=== PATIENT | male | born 1980 | race Caucasian/White ===

== ENCOUNTER 2017-04-14 08:21 | Emergency (ER) | payer OTHER ==
[2017-04-14 08:44] VITALS: BP 136/78
--- NOTE | 2017-04-14 09:06 | UC ---
Ear Complaint HPI - HPI Summary HPI Summary: Patient presents with left sided ear pain, redness and swelling x 3 days. He was seen by Dr. Barth's office for "dry skin in the ear" and cerumen buildup with pain on Saturday. He was prescribed Ofloxacin drops which he used on Saturday night and Saturday morning. Since that time, the redness and swelling developed with worsening pain. His partner states she has been flushing the ear consistently for several months for wax build up with good effect. Today, he also notes to feeling like the ear has fullness with decreased hearing. Denies pain over the mastoid. Slight discomfort with swallowing on the left side. - History of Current Complaint Chief Complaint: UCEar Stated Complaint: EAR PAIN/MED REACTION (?) Time Seen by Provider: 04/14/17 08:36 Hx Obtained From: Patient Onset/Duration: Gradual Onset Severity Initially: Moderate Severity Currently: Moderate Pain Intensity: 8 Pain Scale Used: 0-10 Numeric Aggravating Factors: Nothing - medication drops Associated Signs/Symptoms: Positive: Discharge, Hearing Loss, Swelling @ - auricle, and tragus - Allergies/Home Medications Allergies/Adverse Reactions: Allergies Allergy/AdvReac Type Severity Reaction Status Date / Time No Known Allergies Allergy Verified 04/14/17 08:31 Home Medications: Home Medications Cetirizine* [ZyrTEC 10 MG TAB*] 10 mg PO DAILY 04/14/17 [History Confirmed 04/14] Citalopram TAB* [CeleXA TAB*] 20 mg PO DAILY 04/14/17 [History Confirmed ] Lisinopril TAB* [Prinivil TAB*] 20 mg PO DAILY 04/14/17 [History Confirmed 04/14] Lovastatin [Altoprev] 20 mg PO DAILY 04/14/17 [History Confirmed 04/14/17] Ofloxacin 0.3% OTIC.WOLF* [Floxin 0.3% OTIC.WOLF*] 1 drop LEFT EAR BID 04/14/17 [ History Confirmed 04/14/17] Ranitidine TAB (NF) [Zantac TAB (NF)] 150 mg PO DAILY 04/14/17 [History Confirmed 04/14/17] PMH/Surg Hx/FS Hx/Imm Hx Previously Healthy: Yes - Surgical History Surgical History: Yes Surgery Procedure, Year, and Place: hernia repair 2006 - Social History Occupation: Employed Full-time Lives: With Family Alcohol Use: None Substance Use Type: None Smoking Status (MU): Never Smoked Tobacco Have You Smoked in the Last Year: No Review of Systems Constitutional: Negative Skin: Negative Eyes: Negative ENT: Ear Ache Respiratory: Negative Cardiovascular: Negative Neurological: Negative Psychological: Negative All Other Systems Reviewed And Are Negative: Yes Physical Exam Triage Information Reviewed: Yes Appearance: Well-Appearing, Well-Nourished Vital Signs: Initial Vital Signs Temp 98.5 F 04/14/17 08:24 Pulse 92 04/14/17 08:24 Resp 16 04/14/17 08:24 BP 136/78 04/14/17 08:24 Pulse Ox 98 04/14/17 08:24 Vital Signs Reviewed: Yes Eye Exam: Normal Eyes: Positive: Conjunctiva Clear ENT: Positive: Other: - area of small erythema over tragus and auricle of the left ear without mastoid erythema or tenderness Neck exam: Normal Neck: Positive: Supple, No Lymphadenopathy Respiratory Exam: Normal Respiratory: Positive: Chest non-tender Cardiovascular Exam: Normal Cardiovascular: Positive: RRR Musculoskeletal Exam: Normal Musculoskeletal: Positive: Strength Intact Neurological Exam: Normal Psychological: Positive: Normal Response To Family, Age Appropriate Behavior Ear Complaint Course/Dx - Course Course Of Treatment: Pain in left ear after beginning Ofloxacin drops. Noted area of small erythema over tragus and auricle of the left ear without mastoid erythema or tenderness. Odynophagia on L side - mild. TM without erythema or pus pocket. No drainage noted. Will treat for inflammation likely d/t drops with possible infection d/t redness, tenderness and pain. Dry skin visulized over the ear canal. No cerumen. No signs of mastoiditis. Decreased hearing per patient. Encouraged to take prednisone and augmentin for infection and inflammation. Will return to Barth's office on Saturday for check up and return to UC or go to ED for any worsening symptoms or pain. Treatment options discussed. Patient is advised to follow up with primary care provider in 1-2 weeks regarding BP and other medications. Patients Medications reviewed with patients. - Differential Dx/Diagnosis Differential Diagnosis/HQI/PQRI: Barotrauma, Cerumen Impaction, Mastoiditis, Otitis Externa, Otitis Media Provider Diagnoses: Otitis Media Discharge - Discharge Plan Condition: Stable Disposition: HOME Prescriptions: Amoxicillin/Clavulanate TAB* [Augmentin TAB 875*] 875 mg PO BID #14 tab predniSONE TAB* [Deltasone TAB*] 50 mg PO DAILY #5 tab MDD 1 Patient Education Materials: Otitis Media (ED) Referrals: Roni Barth MD [Medical Doctor] - Additional Instructions: Follow up with Dr. Barth's office. Discontinue Ofloxacin drops Take Augmentin twice daily for 7 days Prednisone in the morning, 1 tab once daily for 5 days Tylenol or ibuprofen may be used for any discomfort. If any symptoms worsen, return to or go to the ED immediately.
== END 2017-04-14 09:05 | disposition home or self-care (01) ==
LOC: UCCORT 08:21
DX: H66.92 Otitis media, unspecified, left ear (principal)
CPT/HCPCS: 99202; G0463

== ENCOUNTER 2018-03-26 19:51 | Emergency (ER) | payer OTHER ==
[2018-03-26 20:29] VITALS: BP 139/74
--- NOTE | 2018-03-26 20:41 | UC ---
Skin Complaint HPI - HPI Summary HPI Summary: 37 y/o male presents to the urgent care c/o a vesicular rash above his Rt elbow since last night. Pt reports it started w/ 1 vesicle and this morning more appeared and this afternoon it was burning and painful. Pain is 6/10. Pt states Hx of chicken pox as a baby. He works in a alf. Pt denies fever , SOB, chest pain, abdominal pain, N/V/D - History of Current Complaint Chief Complaint: UCSkin Time Seen by Provider: 03/26/18 20:33 Stated Complaint: RASH ELBOW Hx Obtained From: Patient Onset/Duration: Gradual Onset, Lasting Days - 1 day, Still Present, Worse Since - today Skin Exposure Onset/Duration: Days Ago - 1 day Timing: Constant Onset Severity: Mild Current Severity: Moderate Pain Intensity: 6 - burning Pain Scale Used: 0-10 Numeric Location: Discrete, Hand (Right) - RT upper arm Character: Pain, Redness, Painful Aggravating Factor(s): Touch Alleviating Factor(s): Nothing Associated Signs & Symptoms: Positive: Rash, Tenderness. Negative: Fever, Chills Related History: Other: - Hx of chicken pox as a child - Allergy/Home Medications Allergies/Adverse Reactions: Allergies Allergy/AdvReac Type Severity Reaction Status Date / Time No Known Allergies Allergy Verified 04/14/17 08:31 Home Medications: Home Medications Furosemide [Lasix] 10 mg PO DAILY 03/26/18 [History Confirmed 03/26/18] Review of Systems Constitutional: Negative Skin: Rash - RT upper arm w/ a vesicular painful rash Eyes: Negative ENT: Negative Respiratory: Negative Cardiovascular: Negative Gastrointestinal: Negative Genitourinary: Negative Motor: Negative Neurovascular: Negative Musculoskeletal: Negative Neurological: Negative Psychological: Negative Is Patient Immunocompromised?: No All Other Systems Reviewed And Are Negative: Yes PMH/Surg Hx/FS Hx/Imm Hx Previously Healthy: Yes Endocrine History: Dyslipidemia Cardiovascular History: Hypertension - Surgical History Surgical History: Yes Surgery Procedure, Year, and Place: hernia repair 2005 - Family History Known Family History: Positive: Hypertension Family History: Dyslipidemia - Social History Occupation: Employed Full-time Lives: With Family Alcohol Use: None Substance Use Type: None Smoking Status (MU): Never Smoked Tobacco Have You Smoked in the Last Year: No Physical Exam - Summary Physical Exam Summary: Vital Signs Reviewed: Yes General: well developed, well nourished male sitting in the examining table w/o any apparent distress. Eyes: Positive: Conjunctiva Clear - PERRLA, EOMI ENT: Positive: Normal ENT inspection, Hearing grossly normal, Pharynx normal, TMs normal Neck: Positive: Supple, Nontender, No Lymphadenopathy Respiratory: Positive: Chest nontender, Lungs clear, Normal breath sounds Cardiovascular: Positive: RRR, No Murmur, Pulses Normal Abdomen Description: Positive: Nontender, No Organomegaly, Soft. Negative: CVA Tenderness (R), CVA Tenderness (L) Bowel Sounds: Positive: Present Musculoskeletal: Positive: Strength Intact, ROM Intact, No Edema Neurological Exam: Normal Psychological Exam: Normal Skin: Positive: rashes - RT distal upper arm w/ Positive mild erythematous maculopapular eruption, some group papules with clear and yellowish vesicles in a dermatomal distribution mild tenderness to palpation, no swelling observed. FROM of RT arm. pulses and WNL. capillary refill brisk, sensation is intact. Triage Information Reviewed: Yes Vital Signs: Initial Vital Signs Temp 98.7 F 03/26/18 20:21 Pulse 85 03/26/18 20:21 Resp 19 03/26/18 20:21 BP 139/74 03/26/18 20:21 Pulse Ox 96 03/26/18 20:21 Course/Dx - Course Course Of Treatment: 37 y/o male presents to the urgent care c/o a vesicular rash above his Rt elbow since last night. Pt reports it started w/ 1 vesicle and this morning more appeared and this afternoon it was burning and painful. Pain is 6/10. Pt states Hx of chicken pox as a baby. He works in a alf. Pt denies fever, SOB, chest pain, abdominal pain, N/V/D. Hx obtained. RT distal upper arm w/ Positive mild erythematous maculopapular eruption, some group papules with clear and yellowish vesicles in a dermatomal distribution mild tenderness to palpation on examination. Pt with probably Herpes Zoster. Pt Rx valtrex and Ibuprofen PO and Calamide topical lotion to alleviate symptoms. Pt advised if not improvement or worsening of symptoms to return to the clinic or f/u with PCP in 2 days for further treatment.PT understood and agreed with D/C instructions - Differential Diagnoses - Skin Complaint Differential Diagnoses: Abscess, Cellulitis, Contact Dermatitis, Local Allergic Reaction, Poison [place], Varicella Zoster - Diagnoses Provider Diagnoses: 1- RT upper arm herpes Zoster Discharge - Sign-Out/Discharge Documenting (check all that apply): Discharge/Admit/Transfer - D/C home - Discharge Plan Condition: Stable Disposition: HOME Prescriptions: Calamine/Pramoxine LOTION* [Caladryl LOTION*] 1 applic .SEE ORDER BID #1 btl Ibuprofen TAB* [Motrin TAB* 600 MG] 600 mg PO Q6H PRN #30 tab PRN Reason: Pain ValACYclovir (*) [Valtrex 1 GM(*)] 1 gm PO TID #21 tab Patient Education Materials: Shingles (ED) Forms: *Work Release Referrals: Nick Lange MD [Primary Care Provider] - 2 Days Additional Instructions: 1-Please take full course of Antiviral medication as directed 2-Take Ibuprofen PO after meals w6-8hrs prn for pain. 3-Apply Calamide topical lotios as directed over the affected area to alleviate rash 4-Please F/u with your PCP in 2 days if not improving or worsening of symptoms for further evaluation and treatment. - Billing Disposition and Condition Condition: STABLE Disposition: Home
== END 2018-03-26 21:06 | disposition home or self-care (01) ==
LOC: UCCORT 19:51
DX: B02.9 Zoster without complications (principal); I10 Essential (primary) hypertension
CPT/HCPCS: 99212; G0463